=== PATIENT | female | born 1975 | race Caucasian/White ===

== ENCOUNTER 2016-06-30 09:17 | Emergency (ER) | payer SELFPAY ==
--- NOTE | 2016-06-30 10:19 | ED Physician Chart ---
History of Present Illness - General Chief Complaint: Abdominal Pain Stated Complaint: LOWER ABDOMINAL PAIN Source: Patient, RN notes reviewed Exam Limitations: No Limitations - History of Present Illness Timing/Duration: 1 week, Getting Worse Abdominal Pain Onset Location: LLQ Pain Radiation: flank Modifying Factors: analgesics, movement, palpation, urinating Associated Symptoms: back pain Allergies/Adverse Reactions: Allergies NSAIDS (Non-Steroidal Anti-Inflamma Allergy (Verified 06/30/16 09:32) Penicillins [PCN] Allergy (Verified 06/30/16 09:32) Past History - Past Medical History Medical History: No Pertinent History (the patient's past medical history is significant for recurrent renal stones with an episode of renal failure related to hydronephropathy and pyelonephritis. Sent home also has had a pacemaker installed for sick sinus syndrome,. Past history includes gastric bypass of an unknown variety, laparoscopic cholecystectomy, peptic ulcer repair, and bilateral breast augmentation. Family history is unremarkable. 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 She does not smoke drink or do any drugs. 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 All other systems are reviewed and are completely negative acutely.) Physical Exam - Physical Exam General Appearance: WD/WN (on physical exam the patient is lying quietly on the gurney in mild distress secondary to left flank pain. The patient is mildly hypertensive but the other vital signs are normal. HEENT exam is remarkable for moderate cervical lymphadenopathy and palpable shotty nodes. Chest and cardiovascular systems are normal. Extremity exam is remarkable for numerous needle dodd which the pt states is from 'insurance exam yesterday'. The abdominal exam is remarkable for surgical scars. Bowel sounds are slightly increased, but there is no borborygmi. There is mild palpable left flank and left costovertebral angle tenderness but the rest of the abdomen is completely nontender with no guarding, rebound, referred tenderness, mass, nor hernia.), thin Progress - Results/Orders Results/Orders: Laboratory:,. Urinalysis reveals 50-60 red blood cells with occasional bacteria and moderate epithelial cells. The ultrasound of the left ureter and kidney are unremarkable for hydroureter or hydronephrosis. ED Discharge Plan - Patient Disposition Admit/Discharge/Transfer: PT DISCHARGED HOME Condition at Disposition: Improved Abdominal Pain - Medical Decision Making Medical decision making narrative: Medical decision making: Patient with history of recurrent urinary tract calculi with 5 days of left flank pain and gross hematuria. In light of the prolonged pain and a history of ureteral obstruction with hydroureter nephrosis I will obtain an ultrasound of the left collecting system. 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 Of course all of these may be merely coincidental. I created the [facility] database and the patient does not have any abnormal records. - Differential Diagnosis Differential Diagnosis: Abdominal pain, Calculus of kidney, Diverticulitis, Small Bowel Obstruction - Lab Data Lab results reviewed: Yes I reviewed the patient's lab results. Lab Results 06/30/16 06/30/16 Range/Units 10:10 10:10 Urine Source CLEAN C Urine Color YELLOW Urine Clarity SL. CLOUDY (CLEAR) Urine pH 6.0 Ur Specific [place] 1.025 (1.005-1.030) Urine Protein NEGATIVE (NEGATIVE) mg/dL Urine Glucose (UA) NEGATIVE (NEGATIVE) mg/dL Urine Ketones NEGATIVE (NEGATIVE) mg/dL Urine Blood LARGE H (NEGATIVE) Urine Nitrate NEGATIVE (NEGATIVE) Urine Bilirubin NEGATIVE (NEGATIVE) Urine Urobilinogen 0.2 (0.2 - 1.0) E.U./dL Ur Leukocyte Esterase NEGATIVE (NEGATIVE) Urine RBC 50-60 (0-5) /hpf Urine WBC 0-2 (0-5) /hpf Ur Epithelial Cells MODERATE (FEW) /lpf Urine Bacteria OCCASIONAL (NONE SEEN) /hpf Urine Test NEGATIVE - Radiology Data Radiology results reviewed: Yes I reviewed the patient's radiology results. Discharge Progress Notes Is this patient being discharged home?: Yes Discharge Diagnoses: Diagnosis: Left flank pain and hematuria, consistent with left ureteral calculus , nonobstructing. Hypertension. Recurrent ureterolithiasis. Disposition: PT DISCHARGED HOME Procedures Performed: 06/30/16 10:10 URINALYSIS W/ MICROSCOPIC Urgent 06/30/16 10:14 IV Saline Lock ONCE 06/30/16 10:15 U/S ABDOMEN, LIMITED [US] Stat 06/30/16 10:34 HCG QUAL URINE [ TEST URINE] Stat 06/30/16 11:17 Morphine 2 mg IM NOW STA 06/30/16 11:19 Hydrocodone/APAP 10 mg/325 mg [[place] 10 mg/325 mg] 1 tab PO NOW STA 06/30/16 11:24 Morphine Sulfate [Morphine] 2 mg .ROUTE .STK-MED ONE 06/30/16 11:27 Hydrocodone/APAP 10 mg/325 mg [[place] 10 mg/325 mg] 1 tab .ROUTE .STK-MED ONE 06/30/16 10:10 URINALYSIS W/ MICROSCOPIC Urgent 06/30/16 10:34 HCG QUAL URINE [ TEST URINE] Stat 06/30/16 09:44 Nurse Notes by Savanna Brizuela Walked In: Patient came in with pain in abdomen and left flank, escorted to bed #5, ER MD at bedside for exam. Initialized on 06/30/16 09:44 - END OF NOTE Patient Aware of Diagnosis & Prognosis?: Yes Allergies/Adverse Reactions: Allergies Allergy/AdvReac Type Severity Reaction Status Date / Time NSAIDS (Non-Steroidal Allergy Verified 06/30/16 09:32 Anti-Inflamma Penicillins [PCN] Allergy Verified 06/30/16 09:32 Condition at Discharge: Improved Treatment Plan: Patient was prescribed [place] 5/325 #10 for pain. Patient was advised to seek follow-up medical evaluation for hydroureteronephrosis if pain continues for another 48-72 hours. Patient should seek immediate reevaluation for unanticipated severe symptoms such as vomiting and fever. Diet: Regular Copy Given to Patient & Patient's Legal Dental Practice Manager: No
[2016-06-30 10:35] LABS: URINE BILIRUBIN NEGATIVE (NEGATIVE); URINE BLOOD LARGE (NEGATIVE); URINE COLOR YELLOW; URINE GLUCOSE (UA) NEGATIVE (NEGATIVE); URINE KETONE NEGATIVE (NEGATIVE); URINE PROTEIN NEGATIVE (NEGATIVE); URINE UROBILINOGEN 0.2 E.U./dL (0.2 - 1.0)
[2016-06-30 10:39] LABS: URINE BACTERIA OCCASIONAL /hpf (NONE SEEN); URINE EPITHELIAL CELLS MODERATE /lpf (FEW); URINE RBC 50-60 /hpf (0-5); URINE WBC 0-2 /hpf (0-5)
[2016-06-30] MEDS ORDERED: Morphine Sulfate 2 mg/mL 1mL Syr ONE (11:24)
[2016-06-30] MEDS ORDERED: Hydrocodone/APAP 10 mg/325 mg Tab ONE (11:27)
--- NOTE | 2016-06-30 11:31 | Diagnostic Imaging Report ---
Ultrasound abdomen, Limited History: Rule out ureteral obstruction. Left renal stone Comparison: None Technique: Limited sonographic images of the left upper quadrant were obtained. Exam is limited due to body habitus. The left kidney measures 11.1 x 5.4 cm. Small echogenic foci of the left mid kidney are noted. No evidence of hydronephrosis. The spleen measures 10.6 cm. IMPRESSION: No evidence of hydronephrosis. Small echogenic foci of the left mid kidney which may represent renal sinus fat versus less likely nonobstructing renal stones. If indicated, CT would further clarify.
[2016-06-30] MEDS: Hydrocodone/APAP 10 mg/325 mg Tab PO STA (11:32)
== END 2016-06-30 11:30 | disposition home or self-care (01) ==
LOC: ER 09:17
DX: N20.1 Calculus of ureter (principal); I10 Essential (primary) hypertension; Z88.0 Allergy status to penicillin; Z88.8 Allergy status to other drugs, medicaments and biological substances
CPT/HCPCS: 99285; 96372; 76705; 81001; 81025; J2270